=== PATIENT | female | born 1985 | race Caucasian/White ===

== ENCOUNTER 2017-11-30 11:54 | Outpatient (CLI) | END 2017-11-30 15:30 | disposition home or self-care (01) ==

== ENCOUNTER 2017-12-04 17:11 | Outpatient (CLI) | END 2017-12-04 18:47 | disposition home or self-care (01) ==

== ENCOUNTER 2017-12-07 20:23 | Outpatient (CLI) | END 2017-12-07 22:21 | disposition home or self-care (01) ==

== ENCOUNTER 2017-12-11 08:50 | Outpatient (CLI) | END 2017-12-11 11:05 | disposition home or self-care (01) ==

== ENCOUNTER 2018-01-11 20:21 | Inpatient (IN) | END 2018-01-15 12:15 | disposition home or self-care (01) | DRG 807 ==